=== PATIENT | female | born 1985 | race Caucasian/White ===

== ENCOUNTER 2022-04-29 10:50 | Emergency (ER) | payer OTHER, SELFPAY ==
[2022-04-29 10:57] VITALS: BP 143/87; PULSE 105; RESP 16; TEMP 37.7; O2SAT 100
--- NOTE | 2022-04-29 10:58 | ED.FEMALEGU ---
HPI - Female Genitourinary General Chief complaint: Urogenital-Female Stated complaint: UTI lower back pain chills Time Seen by Provider: 04/29/22 10:58 Source: patient and RN notes reviewed History of Present Illness HPI Narrative: Patient is a 36-year-old female who presents the urgent care with complaints of a possible UTI due to frequency, urgency, chills and low back pain. Patient states she does have a history of UTI but it has been sometime since her last issue. Patient states that she was on hydroxychloroquine which was causing frequent UTIs. Denies any fever, vomiting, diarrhea. States that she has had intermittent nausea. Reports of symptoms starting yesterday and she has been using Azo with mild relief. No other acute complaints. No acute distress noted. Patient aware of the plan of care. Some parts of this dictation were generated by voice recognition software and may contain typographical and/or grammatical inaccuracies. Related Data Home Medications Medication Instructions Recorded Confirmed adalimumab 40 mg/0.4 mL ea subcut 04/29/22 subcutaneous pen kit (Humira(CF) Pen) folic acid 1 mg tablet tablet 04/29/22 hydroxychloroquine 200 mg tablet tablet PO 04/29/22 meloxicam 15 mg tablet tablet 04/29/22 metformin 500 mg tablet tablet 04/29/22 Allergies Allergy/AdvReac Type Severity Reaction Status Date / Time hydromorphone [From Dilaudid] Allergy Rash Verified 04/29/22 11:10 topiramate [From Topamax] Allergy Rash Verified 04/29/22 11:10 Review of Systems Review of Systems: CONSTITUTIONAL: Reports of chills without fever sweats EYES: Denies visual changes, redness, or discharge. ENT: Denies rhinorrhea, congestion, sore throat, or otalgia. CARDIOVASCULAR: Denies chest pain, palpitations, or edema. RESPIRATORY: Denies cough or dyspnea. GASTROINTESTINAL: Reports of nausea without vomiting or diarrhea GENITOURINARY: Reports of low back pain, dysuria, urinary frequency SKIN: Denies rash or itching. MUSCULOSKELETAL: Denies back pain, joint pain, or myalgia. NEUROLOGIC: Denies headache, numbness, or weakness. All other systems reviewed are negative, except as documented in HPI. PMFSH Comments At the time of my signature, I reviewed and agree with the nursing past medical, surgical, social, and family history. There is no relevant family history pertinent to the patient complaint. Exam Narrative: GENERAL: This is a well-nourished, well-developed patient, in no apparent distress. HEAD: normocephalic, atraumatic. EYES: PERRL. Sclera clear/white. Vision is grossly intact. EARS: External ears normal NOSE: External nose normal with no obvious nasal discharge, nares without redness, no rhinorrhea. THROAT: Mucous membranes moist NECK: Neck supple CARDIOVASCULAR: Regular rate and rhythm without murmurs, gallops, or rubs. RESPIRATORY: Clear to auscultation. Breath sounds equal bilaterally. No wheezes, rales, or rhonchi. GASTROINTESTINAL: Abdomen soft, mild suprapubic pressure, nondistended. Bowel sounds are active. SKIN: warm, intact with no suspicious lesions or rash, good texture and turgor. NEURO: awake, alert, and oriented to person, place and time. There were no obvious focal neurologic abnormalities. EXTREMITIES: No clubbing, cyanosis, or edema. BACK: Left CVA tenderness Course Course Level of Care: Express Care Visit Vital Signs Vital signs: Vital Signs Temperature 100 F H 04/29/22 10:57 Pulse Rate 105 H 04/29/22 10:57 Respiratory Rate 16 04/29/22 10:57 Blood Pressure 143/87 H 04/29/22 10:57 Pulse Oximetry 100 04/29/22 10:57 Oxygen Delivery Room Air 04/29/22 10:57 Temperature 100 F H 04/29/22 10:57 Pulse Rate 105 H 04/29/22 10:57 Respiratory Rate 16 04/29/22 10:57 Blood Pressure 143/87 H 04/29/22 10:57 Pulse Oximetry 100 04/29/22 10:57 Oxygen Delivery Room Air 04/29/22 10:57 Reviewed-patient is informed that they may have pre-hypertension or hypert
== END 2022-04-29 11:28 | disposition home or self-care (01) ==
PROVIDERS: Emergency Provider Nurse Practitioner Family; PCP Family Medicine
DX: N39.0 Urinary tract infection, site not specified (principal)
CPT/HCPCS: 81003; 87077; 87086; 87186; 99213; G0463